=== PATIENT | male | born 1980 | race Caucasian/White ===

== ENCOUNTER 2022-07-11 16:04 | Emergency (ER) | payer BC, SELFPAY ==
[2022-07-11 16:09] VITALS: BP 125/76; PULSE 71; RESP 20; TEMP 36.4; O2SAT 96; BMI 28.6
--- NOTE | 2022-07-11 17:03 | ED_ITS ---
HPI - Abdominal Pain General Time Seen by Provider: 17:04 Date Seen: 07/11/22 Chief Complaint: Flank Pain Stated Complaint: Kidney stones Time Seen by Provider: 07/11/22 17:03 Source: patient and RN notes reviewed Mode of arrival: ambulatory Limitations: no limitations History of Present Illness HPI narrative: Patient is a 41-year-old male coming in with concern of possible kidney stone. Yesterday around 10:00 a.m. he started having left flank pain radiating into the left groin. It is coming in waves, has been severe at times. 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 No fevers or chills. No change in bowel habits. Maybe feels like he is urinating less, no hematuria. Has a history of a kidney stone about 12 years ago, remembers it feeling like this. Did not have any instrumentation, stone passed on its own. He does not feel like he has been getting fluids in due to the nausea and vomiting. Right now he is feeling better. He has started noted a little vague right flank ache just recently, wonders if the kidney stone is causing that or if there could be 1 on the other side. Related Data Previous Rx's Medication Instructions Recorded ketorolac 10 mg tablet 10 mg PO Q6H 5 days #20 tabs 07/11/22 ondansetron 4 mg disintegrating 4 mg PO Q6H PRN nausea and 07/11/22 tablet vomiting #20 tabs oxycodone 5 mg capsule 5 mg PO Q6H PRN pain #10 caps 07/11/22 tamsulosin 0.4 mg capsule (Flomax) 0.4 mg PO DAILY #14 caps 07/11/22 Allergies Allergy/AdvReac Type Severity Reaction Status Date / Time No Known Drug Allergies Allergy Verified 07/11/22 16:13 Review of Systems Status of ROS Reports: 6 or more systems reviewed and unremarkable except as noted in History and below Exam Const: Vital Signs, click to edit/add: Vital Signs - 24 hr 07/11/22 16:09 07/11/22 17:40 Temperature 97.6 F Pulse Rate [Pulse Oximeter] 71 66 Respiratory Rate 20 20 Blood Pressure [Ri ght Upper Arm] 125/76 122/80 Pulse Oximetry 96 95 Oxygen Delivery Me thod Room Air Room Air Documenting provider has reviewed patient's vital signs: yes Common normals: no apparent distress, average body habitus, oriented x3, no limitations, healthy appearing, alert and well nourished General appearance: cooperative, comfortable (sitting up on edge of bed), well kempt and well developed HENMT: Common normals: normocephalic, head/scalp atraumatic, hearing grossly normal bilaterally and external nose normal Head and scalp: normocephalic and atraumatic Nose: external nose normal Eye: Common normals: PERRL, EOMs intact bilaterally, conjunctivae normal and no scleral icterus Conjunctiva: conjunctiva(e) normal Pupil: PERRL Neck & C-Spine: Common normals: full ROM, no lymphadenopathy and supple Resp: Common normals: normal respiratory effort, no retractions, no use of accessory muscles and clear to auscultation bilaterally Auscultation: clear to auscultation bilaterally Cardio: Common normals: regular rate, regular rhythm, S1 normal heart sound, S2 normal heart sound, no gallops, no clicks, no murmurs and no rub Rate: re gular rate Rhythm: regular rhythm Heart sounds: S1 normal and S2 normal GI: Common normals: Normal to inspection, nondistended, normoactive bowel sounds present and soft to palpation Palpation: soft : Common normals: no CVA tenderness Bladder/kidney exam: no CVA tenderness Back & Pelvis: Common normals: no CVA tenderness Extremity: Common normals: normal to inspection Neuro: Common normals: oriented x3 and moves all extremities Sensorium/orientation: alert Psych: Appearance: well kempt Course Course Hospital Course: Reviewed with patient that we will initiate IVF and zofran given that he has been having nausea and vomiting. Will obtain CT imaging to concern kidney stone and determine size. This may enlighten us to other causative etiologies of abdominal pain if no kidney stone found. Obtain baseline labs, UA already pending. Reevaluation(s) Reevaluation #1: Reviewed CT findings, results with patient. Will plan on discharge to home, have reviewed discharge plan and management. Time: 19:30 Vital Signs Vital signs: Initial Vital Signs Temperature 97.6 F 07/11/22 16:09 Temperature Source Temporal Artery Scan 07/11/22 16:09 Pulse Rate 71 07/11/22 16:09 Respiratory Rate 20 07/11/22 16:09 Blood Pressure 125/76 07/11/22 16:09 Blood Pressure Mean 92 07/11/22 16:09 Blood Pressure Position Sitting 07/11/22 16:09 Pulse Oximetry 96 07/11/22 16:09 Oxygen Delivery Method Room Air 07/11/22 16:09 Vital Signs Temperature 97.6 F 07/11/22 16:09 Pulse Rate 71 07/11/22 16:09 Respiratory Rate 20 07/11/22 16:09 Blood Pressure 125/76 07/11/22 16:09 Pulse Oximetry 96 07/11/22 16:09 Oxygen Delivery Method Room Air 07/11/22 16:09 Temperature 97.6 F 07/11/22 16:09 Pulse Rate 66 07/11/22 17:40 Respiratory Rate 20 07/11/22 17:40 Blood Pressure 122/80 07/11/22 17:40 Pulse Oximetry 95 07/11/22 17:40 Oxygen Delivery Method Room Air 07/11/22 17:40 MDM - Abdominal Pain Lab Data Attestation: I reviewed the patient's lab results. Labs: Lab Results 07/11/22 07/11/22 Range/Units 17:00 17:50 WBC 9.77 (4.50-11.00) K/uL RBC 5.01 (4.30-5.90) m/uL Hgb 15.6 (13.5-17.5) gm/dL Hct 44.2 (37.0-53.0) % MCV 88 (80-100) fL MCH 31 (26-34) pg MCHC 35 (32-36) gm/dL RDW Coeff of Selvin 11.4 L (11.5-15.5) % Plt Count 184 (140-440) K/uL Neut % (Auto) 67.6 (42.0-72.0) % Lymph % (Auto) 22.7 (20-44) % Huntington % (Auto) 9.3 (0.0-11.0) % Eos % (Auto) 0.2 (0.0-7.0) % Baso % (Auto) 0.1 (0.0-3.0) % Neut # (Auto) 6.60 (1.7-7.0) K/uL Lymph # (Auto) 2.22 (0.90-2.90) K/uL Huntington # (Auto) 0.90 (0.00-0.90) K/UL Eos # (Auto) 0.02 (0.00-0.50) K/uL Baso # (Auto) 0.01 (0.00-0.30) K/uL Sodium 140 (135-149) mmol/L Potassium 3.7 (3.6-5.1) mmol/L Chloride 100 (96-114) mmol/L Carbon Dioxide 29 (20-32) mmol/L BUN 11 (5-24) mg/dL Creatinine 0.9 (0.5-1.5) mg/dL Estimated Creat Clear 113.88 Estimated GFR 109 ml/min Glucose 103 (60-115) mg/dL Calcium 9.2 (8.4-10.6) mg/dL Urine Color Yellow (Yellow) Urine Appearance Clear (Clear) Urine pH 6.0 (5.0-8.5) Ur Specific Hammond <= 1.005 (1.000-1.030) Urine Protein Negative (Negative) Urine Glucose (UA) Negative (Negative) Urine Ketones Negative (Negative) Urine Blood 2+ A (Negative) Urine Nitrite Negative (Negative) Urine Bilirubin Negative (Negative) Urine Urobilinogen 0.2 (0.2-1.0) Ur Leukocyte Esterase Negative (Negative) Urine RBC 0-2 (0-2) Urine WBC 0-2 (0-5) Ur Squamous Epith Cells Few (None-Few) Urine Bacteria None (None) Imaging Data CT scan - abdomen: Attestation: I have reviewed the pertinent imaging results. My impression: I did visualize CT, saw a left mid ureter stone, need to await radiology's measurement of this. There is some hydronephrosis that I see. Radiologist's impression: Patient: ZACARIAS YOUNG Facility:?[facility] Patient ID:?[id number] Site Patient ID:?[id number]. Site :?[id number] Study:?CT Abdomen/Pelvis W/O-07/11/2022 6:04:12 PM Ordering Physician:?Marcela Hendrix Final Report: Indication: Left flank pain Technique: Noncontrast CT abdomen and pelvis Comparison: No comparison Findings: Heart size is normal. Lung bases are clear. Enhanced spleen liver gallbladder adrenal glands unremarkable pancreas is unremarkable. 3 millimeter left mid uret eral stone causing mild left hydronephrosis. Right kidney is unremarkable. Normal appendix. The urinary bladder is unremarkable. Prostate gland unremarkable. The bowel appears unremarkable. No suspicious bony lesions are seen Impression: 1. Mild left hydronephrosis with a 3 millimeter left mid ureteral stone. Please note that all CT scans at this facility use dose modulation, iterative reconstruction, and/or weight-based dosing when appropriate to reduce radiation dose to as low as reasonably achievable. Dictated by Holly Parker MD @ 07/11/2022 7:03:20 PM (Electronic Signature) Discharge Plan Discharge Clinical Impression: Renal colic on left side, Kidney stone on left side Patient Disposition: Home, Self-Care Condition: Stable Instructions: Kidney Stones (ED), Renal Colic (ED) Additional Instructions: Take Tylenol 1000 mg 3 times a day baseline for pain. Can use Toradol neck is for pain, follow-up prescription instructions. Once Toradol is gone, can then use ibuprofen. Do not use ibuprofen and Toradol together as they are from the same class of medications. If you have severe pain, can try the oxycodone. Oxycodone is a narcotic, can be constipating. Would recommend use of MiraLax and or senna well on oxycodone to prevent constipation. No driving or operating machinery if you use the oxycodone. Push fluids. Have written for Zofran to help with nausea. If your pain is uncontrolled, cannot take oral medications because a nausea vomiting or if you develop fever with the stone that has not passed, need to return to the ER emergently. Use Flomax daily until stone has passed. If stone has not passed within a 2 week time frame, do recommend re- evaluation with your primary care provider in clinic. Activity Level: Activity as Tolerated Discharge Diet: Regular Prescriptions: New tamsulosin [Flomax] 0.4 mg capsule 0.4 mg PO DAILY Qty: 14 0RF ondansetron 4 mg tablet,disintegrating 4 mg PO Q6H PRN (Reason: nausea and vomiting) Qty: 20 0RF ketorolac 10 mg tablet 10 mg PO Q6H 5 Days Qty: 20 0RF oxycodone 5 mg capsule 5 mg PO Q6H PRN (Reason: pain) Qty: 10 0RF Follow Up/Referrals: Anderson Jc MD [Primary Care Provider] - Stand Alone Forms: MyHealth Info Instructions
[2022-07-11 17:10] LABS: Appearance Urine Clear (Clear); Bilirubin Urine Negative (Negative); Blood Urine 2+ (Negative); Color Urine Yellow (Yellow); Glucose Urine Negative (Negative); Ketones Urine Negative (Negative); Leukocyte Esterase Urine Negative (Negative); Nitrite Urine Negative (Negative); Protein Urine Negative (Negative); Specific Gravity Urine <= 1.005 (1.000-1.030); Urobilinogen Urine 0.2 (0.2-1.0)
[2022-07-11 17:21] LABS: RBC Urine 0-2 (0-2); Squamous Epithelial Cell Urine Few (None-Few); WBC Urine 0-2 (0-5)
--- NOTE | 2022-07-11 17:26 | CRLHL7_ITS ---
For Patients: As a result of the Century Cures Act, medical imaging exams and procedure reports are released immediately into your electronic medical record. You may view this report before your referring provider. If you have questions, please contact your health care provider. Indication: Left flank pain Technique: Noncontrast CT abdomen and pelvis Comparison: No comparison Findings: Heart size is normal. Lung bases are clear. Enhanced spleen liver gallbladder adrenal glands unremarkable pancreas is unremarkable. 3 millimeter left mid ureteral stone causing mild left hydronephrosis. Right kidney is unremarkable. Normal appendix. The urinary bladder is unremarkable. Prostate gland unremarkable. The bowel appears unremarkable. No suspicious bony lesions are seen Impression: 1. Mild left hydronephrosis with a 3 millimeter left mid ureteral stone. Please note that all CT scans at this facility use dose modulation, iterative reconstruction, and/or weight-based dosing when appropriate to reduce radiation dose to as low as reasonably achievable. Dictated by Holly Praker MD @ 07/11/2022 7:03:20 PM (Electronically Signed)
[2022-07-11 17:40] VITALS: BP 122/80; PULSE 66; RESP 20; O2SAT 95
[2022-07-11] MEDS: ONDANSETRON 2 MG/ML inj 4 MG IVP (17:53)
[2022-07-11] MEDS: 0.9 % SODIUM CHLORIDE 1000 ml 1,000 ML IV (17:53)
[2022-07-11 17:58] LABS: Basophils Absolute Auto 0.01 K/uL (0.00-0.30); Basophils Percent Auto 0.1 % (0.0-3.0); Eosinophils Absolute Auto 0.02 K/uL (0.00-0.50); Eosinophils Percent Auto 0.2 % (0.0-7.0); Hematocrit 44.2 % (37.0-53.0); Hemoglobin* 15.6 gm/dL (13.5-17.5); Immature Granulocytes Abs Auto 0.01 K/uL (0.00-0.30); Immature Granulocytes Pct Auto 0.1 %; Lymphocytes Absolute Auto 2.22 K/uL (0.90-2.90); Lymphocytes Percent Auto 22.7 % (20-44); Mean Corpuscular HGB Conc 35 gm/dL (32-36); Mean Corpuscular Hemoglobin 31 pg (26-34); Mean Corpuscular Volume 88 fL (80-100); Monocytes Percent Auto 9.3 % (0.0-11.0); Neutrophils Percent Auto 67.6 % (42.0-72.0); Platelet Count* 184 K/uL (140-440); RDW Coefficient of Variation % 11.4 % (11.5-15.5); Red Blood Count 5.01 m/uL (4.30-5.90); White Blood Count* 9.77 K/uL (4.50-11.00)
[2022-07-11 18:13] LABS: Slide Review Reflex No
[2022-07-11 18:16] LABS: Chloride* 100 mmol/L (96-114); Sodium* 140 mmol/L (135-149)
[2022-07-11 18:19] LABS: Creatinine* 0.9 mg/dL (0.5-1.5); Est. Creatinine Clearance* 113.88; Estimated Glomerular Filt Rate 109 ml/min; Potassium* 3.7 mmol/L (3.6-5.1)
[2022-07-11 18:20] LABS: Blood Urea Nitrogen* 11 mg/dL (5-24); Calcium* 9.2 mg/dL (8.4-10.6); Carbon Dioxide* 29 mmol/L (20-32); Glucose* 103 mg/dL (60-115)
[2022-07-11 19:53] VITALS: BP 121/73; PULSE 68; RESP 18; O2SAT 98
== END 2022-07-11 19:54 | disposition home or self-care (01) ==
PROVIDERS: Emergency Provider Family Medicine; PCP Family Medicine
DX: N20.0 Calculus of kidney (principal)
CPT/HCPCS: 36415; 74176; 80048; 81001; 85025; 96374; 99284; J2405; J7030

== ENCOUNTER 2023-01-09 09:55 | Outpatient (CLI) | payer BC, SELFPAY | END 2023-01-09 09:56 | disposition home or self-care (01) | LOC: NFLDREF 01-12 11:23 | PROVIDERS: PCP Physician Assistant Medical; Referring Provider Physician Assistant Medical; Visit Provider Physician Assistant Medical | DX: Z00.00 Encounter for general adult medical examination without abnormal findings (principal); Z13.6 Encounter for screening for cardiovascular disorders; Z13.29 Encounter for screening for other suspected endocrine disorder | CPT/HCPCS: 80053; 80061; 84443 ==

== ENCOUNTER 2023-05-30 15:41 | Outpatient (CLI) | payer BC, SELFPAY | END 2023-05-30 15:42 | disposition home or self-care (01) | LOC: NFLDREF 05-31 06:27 | PROVIDERS: PCP Physician Assistant Medical; Referring Provider Physician Assistant Medical; Visit Provider Physician Assistant Medical | DX: F41.9 Anxiety disorder, unspecified (principal); F32.A Depression, unspecified; G47.00 Insomnia, unspecified | CPT/HCPCS: 82306; 82728 ==

== ENCOUNTER 2023-12-18 13:20 | Outpatient (CLI) | payer BC, SELFPAY | END 2023-12-18 13:21 | disposition home or self-care (01) | LOC: FRMREF 13:21 | PROVIDERS: PCP Physician Assistant Medical; Visit Provider Physician Assistant Medical | DX: N20.0 Calculus of kidney (principal) | CPT/HCPCS: 82365 ==

== ENCOUNTER 2024-10-29 09:22 | Outpatient (CLI) | payer BC, SELFPAY ==
--- NOTE | 2024-11-05 12:27 | W.PM.SLEEP ---
Sleep Study Details Details Interpreting Provider: Mitzy Date of Sleep Study: 10/29/24 Sleep Study Details: STUDY TYPE:? Home unattended ? BMI:? 27.9 ORDERING PROVIDER:Kenyetta Wiley INDICATION:? Concerned about sleep apnea ? SLEEP SUMMARY:? 377 minutes monitored RESPIRATORY SUMMARY:? AHI 19.3 per rule 1A, 12.6 per CMS guideline Low oxygen 78 4.7% of study oxygen less than 90% Snoring 100% PERIODIC LIMB MOVEMENTS OF SLEEP:? Not recorded CARDIAC:? Range 40-100, mean 69 beats per minute IMPRESSION:? Moderate obstructive sleep apnea RECOMMENDATION: Treatment options include CPAP dental appliance and/or airway expansion surgery.
== END 2024-10-29 09:23 | disposition home or self-care (01) ==
PROVIDERS: PCP Physician Assistant Medical; Visit Provider Physician Assistant Medical
DX: G47.33 Obstructive sleep apnea (adult) (pediatric) (principal)
CPT/HCPCS: 95806

== ENCOUNTER 2024-12-30 09:03 | Outpatient (CLI) | payer BC, SELFPAY ==
--- NOTE | 2024-12-30 11:37 | P.ANES_ITS ---
Anesthesia Charges Start Date/Time Anesthesia Start Date: 12/30/24 Anesthesia Start Time: 11:14 Stop Date/Time Anesthesia Stop Date: 12/30/24 Anesthesia Stop Time: 11:35 Coding CPT Codes CPT Codes: WILNER LWR INTST SCR COLSC - 73175 ([id number]) P1 - NORMAL HEALTHY PATIENT, QK - CRYSTALIZER 2-4 CNCRNT ANES PROC, QX - BRIDGE EXPERT SVC W/ MED DIRECTION
--- NOTE | 2024-12-30 11:37 | W.ANESCHARGE ---
Anesthesia Charges Start Date/Time Anesthesia Start Date: 12/30/24 Anesthesia Start Time: 11:14 Stop Date/Time Anesthesia Stop Date: 12/30/24 Anesthesia Stop Time: 11:35 Coding CPT Codes CPT Codes: WILNER LWR INTST SCR COLSC - 32762 ([id number]) P1 - NORMAL HEALTHY PATIENT, QK - PATIENT SUPPORT TECH 2-4 CNCRNT ANES PROC, QX - CAMP BOSS SVC W/ MED DIRECTION
--- NOTE | 2024-12-30 11:43 | P.ANES_ITS ---
Anesthesia Charges Start Date/Time Anesthesia Start Date: 12/30/24 Anesthesia Start Time: 11:14 Stop Date/Time Anesthesia Stop Date: 12/30/24 Anesthesia Stop Time: 11:35 Coding CPT Codes CPT Codes: WILNER LWR INTST SCR COLSC - [id number] ([id number]) P1 - NORMAL HEALTHY PATIENT, QK - DEHYDRATION PLANT OPERATOR 2-4 CNCRNT ANES PROC, QX - FACILITIES MAINTENANCE TECHNICIAN SVC W/ MED DIRECTION
--- NOTE | 2024-12-30 11:43 | W.ANESCHARGE ---
Anesthesia Charges Start Date/Time Anesthesia Start Date: 12/30/24 Anesthesia Start Time: 11:14 Stop Date/Time Anesthesia Stop Date: 12/30/24 Anesthesia Stop Time: 11:35 Coding CPT Codes CPT Codes: WILNER LWR INTST SCR COLSC - 77986 ([id number]) P1 - NORMAL HEALTHY PATIENT, QK - VENETIAN BLIND MAKER 2-4 CNCRNT ANES PROC, QX - CREATIVE PRODUCER SVC W/ MED DIRECTION
== END 2024-12-30 09:04 | disposition home or self-care (01) ==
LOC: OP CLINIC 09:03
PROVIDERS: PCP Physician Assistant Medical; Visit Provider Surgery
DX: Z12.11 Encounter for screening for malignant neoplasm of colon (principal)
CPT/HCPCS: 00812; 45378; J2704